=== PATIENT | female | born 1960 | race African-American/Black ===

== ENCOUNTER 2018-01-25 20:58 | Emergency (ER) | payer OTHER ==
[2018-01-25] MEDS ORDERED: traMADol HCl 50 MG TAB ONE (21:31)
== END 2018-01-25 21:39 | disposition home or self-care (01) ==
LOC: MADERS 20:58
DX: T23.171A Burn of first degree of right wrist, initial encounter (principal); I10 Essential (primary) hypertension; X10.1XXA Contact with hot food, initial encounter
CPT/HCPCS: 99283

== ENCOUNTER 2019-03-08 14:59 | Emergency (ER) | payer SELFPAY ==
[2019-03-08] MEDS ORDERED: Ketorolac Tromethamine 30 MG/ML VIAL ONE (15:36)
[2019-03-08] MEDS ORDERED: Dexamethasone 10 MG/ML VIAL ONE (15:36)
[2019-03-08] MEDS ORDERED: Clindamycin 300 MG/2 ML VIAL ONE (15:36)
== END 2019-03-08 16:26 | disposition home or self-care (01) ==
LOC: MADERS 14:59
DX: J02.9 Acute pharyngitis, unspecified (principal); I10 Essential (primary) hypertension; Z79.82 Long term (current) use of aspirin
CPT/HCPCS: 87081; 87430; 96372; 99283; J1100; J1885; J3490